=== PATIENT | female | born 1930 | race Caucasian/White ===

== ENCOUNTER 2017-08-24 14:15 | Emergency (ER) | payer OTHER, MEDICARE ==
[~2017-08-24] VITALS: Ht 157.5 cm; Wt 72.7 kg
[2017-08-24 15:06] LABS: INTER. NORMALIZED RATIO 2.8; PROTHROMBIN TIME 32.1 SEC (10.2-12.9)
[2017-08-24 15:09] LABS: PTT 41.9 SEC (25-37)
[2017-08-24 20:08] VITALS: BP 147/77
== END 2017-08-24 20:11 | disposition home or self-care (01) ==
LOC: EME 14:15
PROVIDERS: Physician Assistant
PROC: 0HQ0XZZ Repair Scalp Skin, External Approach (ICD-10-PCS; principal; 2017-08-24)
DX: S01.01XA Laceration without foreign body of scalp, initial encounter (principal); W08.XXXA Fall from other furniture, initial encounter; Z91.81 History of falling; Y92.512 Supermarket, store or market as the place of occurrence of the external cause; I48.91 Unspecified atrial fibrillation; Z86.73 Personal history of transient ischemic attack (TIA), and cerebral infarction without residual deficits; Z79.01 Long term (current) use of anticoagulants; M85.88 Other specified disorders of bone density and structure, other site
CPT/HCPCS: 70450; 72125; 72128; 85610; 85730; 99281; 99285